=== PATIENT | female | born 1955 | race Caucasian/White ===

== ENCOUNTER 2018-08-23 07:20 | Day surgery (SDC) | payer BC ==
[~2018-08-23 07:20] MED LIST: Lactated Ringers 1,000 ML IV SCH
[2018-08-23] MEDS ORDERED: Propofol 200 MG/20 ML SDV IV ONE (07:21)
[2018-08-23] MEDS ORDERED: Midazolam 1 MG/ML 2 ML SDV IV ONE (07:21)
--- NOTE | 2018-08-23 09:11 | PCM.OPNOTE ---
- General Post-Op/Procedure Note Date of Surgery/Procedure: 08/23/18 Operative Procedure(s): c scope with bx Findings: descending colon x2 descending colon diverticuli Pre Op Diagnosis: + ColoGuard Post-Op Diagnosis: descending colon x2. descending colon diverticuli Anesthesia Technique: MAC Primary Surgeon: Davon Payan Anesthesia Provider: [facility] Pathology: descending colon x2 Complications: None Condition: Good Free Text/Narrative:: see dictation
[2018-08-23 10:02] VITALS: BP 125/76
--- NOTE | 2018-08-23 16:17 | OR ---
DATE OF OPERATION: 08/23/2018 SURGEON: Davon Payan MD PROCEDURE PERFORMED: Colonoscopy with cold forceps biopsy. PREOPERATIVE DIAGNOSIS: Positive Cologuard. POSTOPERATIVE DIAGNOSES: Descending colon polyp x2 and descending diverticular disease. INDICATIONS FOR PROCEDURE: This is a 63-year-old white female, has a known history of a sigmoid colon resection for diverticulitis. She was noted recently to have a positive Cologuard exam and was offered and accepted colonoscopy. DESCRIPTION OF PROCEDURE: After an excellent IV sedation was administered, digital rectal exam was performed. No marked abnormality was noted. The flexible colonoscope was inserted and advanced to the cecum. The prep was excellent. The following findings were noted. Ascending colon, unremarkable. Transverse colon, unremarkable. Descending colon, occasional diverticula and two small polyps within 3 cm of each other. These were biopsied with combination of cold forceps and cold loop snare, biopsied, and submitted in one container. The anastomosis was unremarkable. The rectum and anus were unremarkable. The colon was deflated, scope was removed, and the patient tolerated the procedure well. Results by letter. /[id number] /MODL
== END 2018-08-23 09:43 | disposition home or self-care (01) ==
LOC: FB.SDS 07:20
PROVIDERS: ATTEND Surgery
DX: D12.4 Benign neoplasm of descending colon (principal); K57.30 Diverticulosis of large intestine without perforation or abscess without bleeding; I10 Essential (primary) hypertension; J44.9 Chronic obstructive pulmonary disease, unspecified; G47.33 Obstructive sleep apnea (adult) (pediatric); E11.9 Type 2 diabetes mellitus without complications; Z87.891 Personal history of nicotine dependence; Z79.52 Long term (current) use of systemic steroids; Z79.01 Long term (current) use of anticoagulants; Z79.84 Long term (current) use of oral hypoglycemic drugs; Z79.51 Long term (current) use of inhaled steroids; Z99.89 Dependence on other enabling machines and devices; Z88.0 Allergy status to penicillin; Z98.890 Other specified postprocedural states
CPT/HCPCS: 45380; 45385; 82962; 88305; J2250; J2704; J7120

== ENCOUNTER 2019-05-10 07:27 | Day surgery (SDC) | payer BC ==
[2019-05-10] MEDS ORDERED: fentaNYL 100 MCG/2 ML SDV IV ONE (07:28)
[2019-05-10] MEDS ORDERED: Midazolam 1 MG/ML 2 ML SDV IV ONE (07:28)
[2019-05-10] MEDS ORDERED: Sodium Chloride 0.9% 10 ML Syringe FLUSH PRN (07:30)
[2019-05-10] MEDS ORDERED: Lactated Ringers 1,000 ML IV SCH (07:30)
[2019-05-10] MEDS ORDERED: acetaZOLAMIDE 500 MG Cap.ER PO ONE (09:30)
[2019-05-10 09:56] VITALS: BP 126/76; PULSE 84
--- NOTE | 2019-05-11 08:35 | OR ---
DATE OF OPERATION: 05/10/2019 SURGEON: Patrizia Faust MD PREOPERATIVE DIAGNOSIS: Visually significant cataract, right eye. POSTOPERATIVE DIAGNOSIS: Visually significant cataract, right eye. PROCEDURES PERFORMED: Phacoemulsification with intraocular lens placement, right eye. ASSISTANTS: None. ANESTHESIA: Local with sedation. COMPLICATIONS: None. BLOOD LOSS: None. IMPLANTS: An Ronen AU00T0, 23.5 diopter lens, serial number [id number] implanted. CDE: 5.54. DESCRIPTION OF PROCEDURE: After risks and benefits were reviewed with the patient, consent was obtained in the preoperative area, and the operative eye was marked with a surgical pen. In the preoperative area, a pledget was used to dilate the pupil consisting of a mixture of phenylephrine 10%, cyclopentolate 2%, moxifloxacin 0.5%, and bupivacaine 0.75%. The patient was taken to the operating room, where a time-out was performed, and the patient was placed under monitored anesthesia care. Topical tetracaine was used for anesthesia. The operative eye was prepped and draped for ophthalmic surgery, and the microscope was brought into position and focused. A paracentesis incision was made, followed by injection of preservative-free 1% lidocaine into the anterior chamber, followed by injection of Viscoat into the anterior chamber. A microkeratome blade was used to make a corneal limbal incision temporally. A cystotome was used to make the beginning of the capsulorrhexis, which was carried around 360 degrees in a curvilinear fashion using Utrata forceps. A Alcantar cannula with BSS was used to hydrodissect and hydrodelineate the nucleus. The nucleus was removed in a divide and conquer manner using phacoemulsification. Irrigation and aspiration were used to remove the remaining cortical material. Provisc was used to inflate the capsular bag, and a pre-loaded 23.5 diopter lens, serial number [id number] was injected into the capsular bag. A Sinskey hook was used to position and center the lens. Next, irrigation and aspiration was used to remove any remaining viscoelastic and cortical material from the anterior chamber. BSS on a cannula was used to inflate the anterior chamber and hydrate the wound. The wound was checked and found to be watertight. 1 mg of Moxifloxacin was injected into the anterior chamber. Drapes were removed and the eye was cleaned. A drop of brimonidine 0.15% and a drop of TobraDex was placed. The eye was shielded, and the patient was taken to the recovery room in stable condition. /[id number] PETERSON/PITER CC: DEVANTE LOU FNP MTDD
== END 2019-05-10 09:58 | disposition home or self-care (01) ==
LOC: FB.SDS 07:27
PROVIDERS: ATTEND Ophthalmology
DX: E11.36 Type 2 diabetes mellitus with diabetic cataract (principal); D31.32 Benign neoplasm of left choroid; H02.886 Meibomian gland dysfunction of left eye, unspecified eyelid; H02.883 Meibomian gland dysfunction of right eye, unspecified eyelid; E11.3299 Type 2 diabetes mellitus with mild nonproliferative diabetic retinopathy without macular edema, unspecified eye; J44.9 Chronic obstructive pulmonary disease, unspecified; I10 Essential (primary) hypertension; F41.9 Anxiety disorder, unspecified; F32.9 Major depressive disorder, single episode, unspecified; G47.33 Obstructive sleep apnea (adult) (pediatric); Z88.0 Allergy status to penicillin; Z99.89 Dependence on other enabling machines and devices; Z79.2 Long term (current) use of antibiotics; Z79.01 Long term (current) use of anticoagulants; Z79.899 Other long term (current) drug therapy; Z79.84 Long term (current) use of oral hypoglycemic drugs
CPT/HCPCS: 66984; 82962; A9270; J2250; J3010; J7120; V2632

== ENCOUNTER 2019-08-23 06:43 | Day surgery (SDC) | payer BC ==
[2019-08-23] MEDS ORDERED: Midazolam 1 MG/ML 2 ML SDV IV ONE (06:44)
[2019-08-23] MEDS ORDERED: Lactated Ringers 1,000 ML IV SCH (06:45)
[2019-08-23] MEDS ORDERED: Sodium Chloride 0.9% 10 ML Syringe FLUSH PRN (06:45)
[2019-08-23] MEDS ORDERED: acetaZOLAMIDE 500 MG Cap.ER PO ONE (08:30)
[2019-08-23 12:01] VITALS: BP 132/63; PULSE 87
--- NOTE | 2019-08-24 14:53 | OR ---
DATE OF OPERATION: 08/23/2019 SURGEON: Patrizia Faust MD PREOPERATIVE DIAGNOSIS: Visually significant cataract, left eye. POSTOPERATIVE DIAGNOSIS: Visually significant cataract, left eye. PROCEDURES PERFORMED: Phacoemulsification with intraocular lens placement, left eye. ASSISTANTS: None. ANESTHESIA: Local with sedation. COMPLICATIONS: None. BLOOD LOSS: None. IMPLANTS: AU00T0 23.5 diopter lens implanted. CDE: 2.55. DESCRIPTION OF PROCEDURE: After risks and benefits were reviewed with the patient, consent was obtained in the preoperative area, and the operative eye was marked with a surgical pen. In the preoperative area, a pledget was used to dilate the pupil consisting of a mixture of phenylephrine 10%, cyclopentolate 2%, moxifloxacin 0.5%, and bupivacaine 0.75%. The patient was taken to the operating room, where a time-out was performed, and the patient was placed under monitored anesthesia care. Topical tetracaine was used for anesthesia. The operative eye was prepped and draped for ophthalmic surgery, and the microscope was brought into position and focused. A paracentesis incision was made, followed by injection of preservative-free 1% lidocaine into the anterior chamber, followed by injection of Viscoat into the anterior chamber. A microkeratome blade was used to make a corneal limbal incision temporally. A cystotome was used to make the beginning of the capsulorrhexis, which was carried around 360 degrees in a curvilinear fashion using Utrata forceps. A Alcantar cannula with BSS was used to hydrodissect and hydrodelineate the nucleus. The nucleus was removed in a divide and conquer manner using phacoemulsification. Irrigation and aspiration were used to remove the remaining cortical material. Provisc was used to inflate the capsular bag, and a pre-loaded AU00T0 23.5 diopter lens, serial number [id number] was injected into the capsular bag. A Sinskey hook was used to position and center the lens. Next, irrigation and aspiration was used to remove any remaining viscoelastic and cortical material from the anterior chamber. BSS on a cannula was used to inflate the anterior chamber and hydrate the wound. The wound was checked and found to be watertight. 1 mg of Moxifloxacin was injected into the anterior chamber. Drapes were removed and the eye was cleaned. A drop of brimonidine 0.15% and a drop of TobraDex was placed. The eye was shielded, and the patient was taken to the recovery room in stable condition. CC: JOSE D NÚÑEZ OD /[id number] PETERSON/PITER
== END 2019-08-23 08:50 | disposition home or self-care (01) ==
LOC: FB.SDS 06:43
PROVIDERS: ATTEND Ophthalmology
DX: E11.36 Type 2 diabetes mellitus with diabetic cataract (principal); H25.813 Combined forms of age-related cataract, bilateral; E11.3299 Type 2 diabetes mellitus with mild nonproliferative diabetic retinopathy without macular edema, unspecified eye; D31.32 Benign neoplasm of left choroid; H02.886 Meibomian gland dysfunction of left eye, unspecified eyelid; H02.883 Meibomian gland dysfunction of right eye, unspecified eyelid; I10 Essential (primary) hypertension; J44.9 Chronic obstructive pulmonary disease, unspecified; G47.33 Obstructive sleep apnea (adult) (pediatric); F41.9 Anxiety disorder, unspecified; F32.9 Major depressive disorder, single episode, unspecified; Z99.89 Dependence on other enabling machines and devices; Z98.890 Other specified postprocedural states; Z88.1 Allergy status to other antibiotic agents; Z88.8 Allergy status to other drugs, medicaments and biological substances; Z79.899 Other long term (current) drug therapy
CPT/HCPCS: 66984; A9270; J2250; J7120; V2632

== ENCOUNTER 2024-01-25 09:11 | Inpatient (IN) | payer OTHER, MEDICARE, BC ==
[2024-01-25] MEDS ORDERED: Haloperidol Lactate 2 MG/ML Oral Soln 15 ML Bottle *PTOM PO PRN (11:01)
[2024-01-25] MEDS ORDERED: Hyoscyamine 0.125 MG Tab.SL *PTOM SL PRN (11:03)
[2024-01-25] MEDS ORDERED: Ondansetron 4 MG Tab.DIS PRN (11:07)
[2024-01-25] MEDS ORDERED: ALBUTEROL INH PRN (11:10)
[2024-01-25] MEDS ORDERED: EPINEPHrine 1 MG/1 ML Amp IM PRN (11:34)
[2024-01-25] MEDS ORDERED: Morphine 10 MG/0.5 ML Oral Syringe SL PRN (12:30)
[2024-01-25] MEDS ORDERED: LORazepam 1 MG Tab PO SCH (13:00)
[2024-01-25] MEDS: LORazepam 0.5 MG Tab PO SCH ×2 (13:27→20:45)
[2024-01-25] MEDS: BUSPIRONE 5 MG PO SCH (14:00)
[2024-01-25] MEDS: Sennosides/Docusate Sodium 50-8.6 MG Tab *PTOM PO SCH (20:34)
[2024-01-25] MEDS ORDERED: Sennosides/Docusate Sodium 50-8.6 MG Tab *PTOM PO SCH (21:00)
[2024-01-26] MEDS: Pantoprazole 40 MG Tab.CR *PTOM PO SCH (05:03)
[2024-01-26] MEDS: AZITHROMYCIN 250 MG PO SCH (08:38)
[2024-01-26] MEDS: Venlafaxine 150 MG Cap.ER *PTOM PO SCH (08:38)
[2024-01-26] MEDS: Hydrochlorothiazide 25 MG Tab *PTOM PO SCH (08:38)
[2024-01-28] MEDS: LORazepam 1 MG Tab PO SCH (12:53)
[2024-01-28] MEDS: Sennosides/Docusate Sodium 50-8.6 MG Tab *PTOM PO SCH (21:18)
[2024-01-29 08:16] VITALS: PULSE 74
[2024-01-29] MEDS: Bisacodyl 10 MG Supp RECTAL PRN (13:16)
[2024-01-29] MEDS: LORazepam 0.5 MG Tab PO PRN (17:24)
[2024-01-30 06:44] VITALS: BP 146/87
== END 2024-01-30 14:35 | disposition other institution (70) | DRG 951 ==
LOC: FB.MS 10:34
PROVIDERS: ADMIT Family Medicine; ATTEND Family Medicine
DX: Z51.5 Encounter for palliative care (principal); Z75.5 Holiday relief care; Z66 Do not resuscitate; F41.9 Anxiety disorder, unspecified
CPT/HCPCS: A9270-GY; J8540; Q5005

== ENCOUNTER 2024-01-30 14:16 | Inpatient (IN) | payer OTHER ==
[2024-01-30] MEDS ORDERED: ALBUTEROL INH PRN (14:43)
[2024-01-30] MEDS ORDERED: EPINEPHrine 1 MG/1 ML Amp IM PRN (14:44)
[2024-01-30] MEDS ORDERED: Haloperidol Lactate 2 MG/ML Oral Soln 15 ML Bottle *PTOM PO PRN (14:45)
[2024-01-30] MEDS ORDERED: Hyoscyamine 0.125 MG Tab.SL *PTOM SL PRN (14:45)
[2024-01-30] MEDS ORDERED: LORazepam 0.5 MG Tab PO PRN (14:46)
[2024-01-30] MEDS ORDERED: Morphine 10 MG/0.5 ML Oral Syringe SL PRN (14:46)
[2024-01-30] MEDS ORDERED: Ondansetron 4 MG Tab.DIS PRN (14:47)
[2024-01-30] MEDS: Bisacodyl 10 MG Supp RECTAL PRN (18:13)
[2024-01-30] MEDS: BUSPIRONE 5 MG PO SCH (21:07)
[2024-01-30] MEDS: Sennosides/Docusate Sodium 50-8.6 MG Tab *PTOM PO SCH (21:07)
[2024-01-30] MEDS: LORazepam 1 MG Tab PO SCH (21:07)
[2024-01-31] MEDS: Pantoprazole 40 MG Tab.CR *PTOM PO SCH (06:57)
[2024-01-31] MEDS: Dexamethasone 4 MG Tab *PTOM PO SCH (08:25)
[2024-01-31] MEDS: Hydrochlorothiazide 25 MG Tab *PTOM PO SCH (08:25)
[2024-01-31] MEDS: Venlafaxine 150 MG Cap.ER *PTOM PO SCH (08:25)
[2024-01-31] MEDS: AZITHROMYCIN 250 MG PO SCH (08:26)
[2024-02-01] MEDS: LORazepam 0.5 MG Tab PO SCH (18:23)
[2024-02-02 06:25] VITALS: BP 132/76; PULSE 82
== END 2024-02-02 11:20 | disposition hospice, inpatient (51) | DRG 951 ==
LOC: FB.MS 14:35
PROVIDERS: ADMIT Family Medicine; ATTEND Family Medicine
DX: Z51.5 Encounter for palliative care (principal); Z75.5 Holiday relief care; Z66 Do not resuscitate
CPT/HCPCS: 87426-QW; A9270-GY; J8540; Q5005